=== PATIENT | female | born 2000 | race Two or more races ===

== ENCOUNTER 2022-12-21 16:04 | Emergency (ER) | payer OTHER ==
[2022-12-21 16:17] VITALS: BP 140/73
--- NOTE | 2022-12-21 16:23 | ED Physician Documentation ---
History of Present Illness - Stated complaint Stated Complaint: FEMALE - Chief complaint Chief Complaint: General - History obtained from History obtained from: Patient - Additonal information Additional information: 2 weeks of itchy thin white vaginal drainage. She is worried about STIs. Has had chlamydia in the remote past. Is in a monogamous relationship currently. PD PAST MEDICAL HISTORY - Present Medications Home Medications: Ambulatory Orders Medication Instructions Recorded Confirmed metroNIDAZOLE [Flagyl] 500 mg PO BID 7 Days #14 tablet 12/21/22 - Allergies Allergies/Adverse Reactions: Allergies Allergy/AdvReac Type Severity Reaction Status Date / Time No Known Drug Allergies Allergy Verified 12/21/22 16:14 PD ED PE NORMAL - Vitals Vital signs reviewed: Yes - General General: Alert and oriented X 3, No acute distress - Abdomen Abdomen: Non tender - Neuro Neuro: Alert and oriented X 3, Normal speech - Psych Psych: Normal mood, Normal affect Results - Vitals Vitals: Vital Signs - 24 hr 12/21/22 16:12 Temperature 36.1 C L Heart Rate 102 H Respiratory 16 Rate Blood Pressure 140/73 H O2 Saturation 98 Oxygen O2 Source Room air - Labs Labs: Laboratory Tests 12/21/22 12/21/22 16:30 16:30 Urine Color YELLOW Urine Clarity CLEAR Urine pH 6.0 Ur Specific [place] 1.010 Urine Protein NEGATIVE Urine Glucose (UA) NEGATIVE Urine Ketones NEGATIVE Urine Occult Blood NEGATIVE Urine Nitrite NEGATIVE Urine Bilirubin NEGATIVE Urine Urobilinogen 0.2 (NORMAL) Ur Leukocyte Esterase NEGATIVE Ur Microscopic Review NOT INDICATED Urine Culture Comments NOT INDICATED Urine HCG, Qual NEGATIVE C. glabrata (PCR) NEGATIVE C. krusei (PCR) NEGATIVE [place] species DNA NEGATIVE T. vaginalis (PCR) NEGATIVE Bact Vaginosis (PCR) POSITIVE A PD Medical Decision Making - ED course ED course: 22-year-old woman with vaginal discharge. Most likely BV given the time course and her symptomatology. We will have her self swab and I will call her later with results and further treatment. I called her at 6:37 PM with results of positive BV panel and sent prescription to [facility] [place] for Flagyl. Discussed no drinking alcohol while on Flagyl. Departure - Departure Disposition: 01 Home, Self Care Clinical Impression: Vaginal discharge Condition: Stable Instructions: ED Vaginosis Bacterial Prescriptions: metroNIDAZOLE [Flagyl] 500 mg PO BID 7 Days #14 tablet Comments: We are testing you for a variety of STDs as well as bacterial vaginosis and yea st infection. We will call you later with results at [phone] I have included the handout for bacterial vaginosis which is probably the most likely diagnosis based on your description. Call your doctor to arrange a follow-up appointment, make the next available appointment. In the interim, return anytime if worse or if new symptoms develop. Discharge Date/Time: 12/21/22 16:38
[2022-12-21 16:43] LABS: BILIRUBIN,URINE NEGATIVE (NEGATIVE); GLUCOSE, URINE (UA) NEGATIVE (NEGATIVE); KETONES,URINE (UA) NEGATIVE (NEGATIVE); LEUKOCYTE ESTERASE, URINE NEGATIVE (NEGATIVE); NITRITE,URINE NEGATIVE (NEGATIVE); OCCULT BLOOD,URINE NEGATIVE (NEGATIVE); PROTEIN,URINE NEGATIVE (NEGATIVE); UROBILINOGEN,URINE 0.2 (NORMAL) E.U./dL (NORMAL)
[2022-12-21 16:46] LABS: CLARITY,URINE CLEAR (CLEAR); HCG UR QUAL NEGATIVE
[2022-12-21 18:28] LABS: BACTERIAL VAGINOSIS DNA POSITIVE (NEGATIVE); CANDIDA KRUSEI DNA NEGATIVE (NEGATIVE)
[2022-12-21 18:29] LABS: CANDIDA GLABRATA DNA NEGATIVE (NEGATIVE); CANDIDA GROUP DNA NEGATIVE (NEGATIVE); TRICHOMONAS VAGINALIS DNA NEGATIVE (NEGATIVE)
[2022-12-21 20:25] LABS: CHLAMYDIA TRACHOMATIS DNA NEGATIVE (NEGATIVE); NEISSERIA GONORRHOEAE DNA NEGATIVE (NEGATIVE)
== END 2022-12-21 16:38 | disposition home or self-care (01) ==
LOC: ED 16:04
DX: N76.0 Acute vaginitis (principal); B96.89 Other specified bacterial agents as the cause of diseases classified elsewhere
CPT/HCPCS: 81001; 81003; 81025; 81514; 87086; 87491; 87591; 87661; 99283